=== PATIENT | male | born 1955 | race Caucasian/White ===

== ENCOUNTER 2021-05-29 20:23 | Emergency (ER) | payer OTHER ==
[2021-05-29 21:17] LABS: BASOPHIL 0.5 % (0-2); EOSINOPHIL 1.9 % (0-5); HCT 44.7 % (42.0-52.0); HGB 15.4 g/dl (13.2-18.0); LYMPHOCYTE 19.7 % (15-48); MCHC 34.5 g/dL (32.0-36.0); MONOCYTE 7.1 % (0-12); MPV 8.7 fL (6.0-9.5); NEUTROPHIL 70.5 % (41-80); NRBC 0; PLT 223 K/uL (150-400); RBC 5.14 M/uL (4.70-6.00); RDW 11.9 % (11.5-14.0); WBC 5.7 K/uL (4.0-10.5)
[2021-05-29 21:35] LABS: ALBUMIN 3.7 g/dL (3.4-5.0); BILIRUBIN - TOTAL 0.4 mg/dL (0.2-1.0); BUN/CREAT RATIO (CALC) 14.4 RATIO; CREATININE 1.11 mg/dL (0.67-1.17); POTASSIUM 4.1 mmol/L (3.5-5.1); TOTAL PROTEIN 7.7 g/dL (6.4-8.2)
[2021-05-29] MEDS ORDERED: PRINIVIL10 MG PO (22:02)
== END 2021-05-29 22:15 | disposition home or self-care (01) ==
LOC: FER 20:23
PROVIDERS: Emergency Medicine
DX: I10 Essential (primary) hypertension (principal)
CPT/HCPCS: 36415; 70450; 71045; 80053; 84484; 85025; 93005; J3490

== ENCOUNTER → 2021-11-07 | Day surgery (SDC) | payer OTHER ==
[~2021-11-07] VITALS: Ht 170.2 cm; Wt 108.9 kg
[~2021-11-07] MED LIST: PRINIVIL10 MG PO
[2021-11-07 08:47] LABS: HGB 15.5 g/dl (13.2-18.0); MCH 30.1 pg (25.0-31.0); MCHC 34.4 g/dL (32.0-36.0); MCV 87.4 fL (78.0-100.0); MPV 8.8 fL (6.0-9.5); RBC 5.15 M/uL (4.70-6.00); RDW 12.2 % (11.5-14.0); WBC 5.8 K/uL (4.0-10.5)
[2021-11-07 09:14] LABS: ALBUMIN 3.9 g/dL (3.4-5.0); BILIRUBIN - TOTAL 0.6 mg/dL (0.2-1.0); BUN/CREAT RATIO (CALC) 11.9 RATIO; CREATININE 1.09 mg/dL (0.67-1.17); GLOBULIN (CALCULATION) 3.7 g/dL; POTASSIUM 3.9 mmol/L (3.5-5.1); TOTAL PROTEIN 7.6 g/dL (6.4-8.2)
== END | disposition home or self-care (01) ==
LOC: FAS 08:20
PROVIDERS: Surgery
DX: Z12.11 Encounter for screening for malignant neoplasm of colon (principal); K57.30 Diverticulosis of large intestine without perforation or abscess without bleeding; I10 Essential (primary) hypertension; Z87.891 Personal history of nicotine dependence
CPT/HCPCS: 36415; 80053; J1610; J2704; J7120